=== PATIENT | female | born 1940 | race Caucasian/White ===

== ENCOUNTER 2017-01-17 10:24 | Inpatient (IN) | payer MEDICARE, MEDICAID ==
[~2017-01-17] VITALS: Ht 165.1 cm; Wt 70.9 kg
[2017-01-17] VITALS (9 sets, daily range): BP systolic 153–196; BP diastolic 81–125
[~2017-01-17 10:24] MED LIST: ASPI-892 PO; BENA10TA PO; BENA1TAB14 PO; BENA20TA2 PO; BNZ10T GT; CLN.2T PO; FAMO20TA5 PO; HYDR-3714 PO; METF500T4 PO; NAPR-243 PO; NIAC-4 PO; NIAC750T PO; OMEG1CAP77 PO; OXYC-12 PO; PARO20TA4 PO; PROM25TA14 PO; SIMV40TA4 PO; SMV20T PO; TRM50T PO
[2017-01-17] MEDS ORDERED: ACETAMINOPHEN 500 MG TAB (TYLENOL) PO PRN (10:30)
[2017-01-17] MEDS ORDERED: PROMETHAZINE INJ 25 MG/ML (PHENERGAN) AMP IM PRN (10:30)
[2017-01-17] MEDS ORDERED: fentaNYL INJECTION 100 MCG/2 ML AMP IVP PRN (10:30)
[2017-01-17] MEDS ORDERED: ONDANSETRON 4 MG/2 ML (SDV) Z0FRAN IVP PRN (10:30)
[2017-01-17] MEDS ORDERED: SCOPOLAMINE 1.5 MG (TRANSDERM-SCOP) PATCH TOP SCH (10:30)
[2017-01-17] MEDS ORDERED: PROMETHAZINE 25 MG (PHENERGAN) SUPP PR PRN (10:30)
--- NOTE | 2017-01-17 11:18 | History & Physical-Hospitalist ---
HPI History of Present Illness: HPI/Chief Complaint CC: Hypertensive urgency and refractory nausea and vomiting HPI: This is a 76 yoWF who presents with HTN and severe vomiting causing the inability to keep down food and medications x 3 days. Chart Review: BP 190/100 Pt's family has been monitoring pt. Pt's PCP is [facility] but she originally saw Dr Cunningham when she was admitted last year at this time with the same symptoms Patient still feels very dizzy and a headache and some vision changes and her blood pressure is 167/[address] Ruby and he saw the patient and will initiate workup with gallbladder ultrasound in addition to supportive care Source: patient Date Seen 01/17/17 Attending Physician Lesly Mayes DO PCP Manny Cunningham MD Referring Physician Date of Admission January 17, 2017 at 11:00 Home Medications & Allergies Home Medications Reviewed patient Home Medication Reconciliation Form Allergies Allergies Coded Allergies tramadol (Verified Allergy, Mild, VOMITING/HIVES, 02/19/15) Past Sldbkek-Qcytbe-Coaoah Hx Patient Social History Marrital Status: single Employed/Student: unemployed Recent Foreign Travel: No Contact w/other who traveled: No Immunizations Up To Date Tetanus Booster (TDap): Unknown Date of Pneumonia Vaccine: Mar 14, 2015 Surgeries HX Surgeries: Yes (R FOOT SURG, R HIP SURG, R knee ) Surgeries: Orthopedic Respiratory Hx Respiratory Disorders: No Cardiovascular Hx Cardiovascular Disorders: Yes Cardiac Disorders: High Cholesterol, Hypertension Neurological Hx Neurological Disorders: No Reproductive System Hx Reproductive Disorders: No Sexually Transmitted Disease: No HIV/AIDS: No Genitourinary Hx Genitourinary Disorders: No Gastrointestinal Hx Gastrointestinal Disorders: Yes Gastrointestinal Disorders: Gastroesophageal Reflux Musculoskeletal Hx Musculoskeletal Disorders: No Endocrine Hx Endocrine Disorders: Yes Endocrine Disorders: Diabetes, Non-Insulin dep HEENT HX ENT Disorders: No Cancer Hx Cancer: No Psychosocial Hx Psychiatric Problems: No Integumentary HX Skin/Integumentary Disorder: No Blood Transfusions Hx Blood Disorders: No Adverse Reaction to a Blood Tr: No Family Medical History Family Hx: Cardiovascular disease 19 FATHER Hypercholesterolemia 19 FATHER Hypertension 19 FATHER 19 MOTHER Myocardial infarction 19 FATHER Review of Systems Constitutional: see HPI, dizziness, malaise, weakness EENTM: no symptoms reported Respiratory: no symptoms reported Cardiovascular: no symptoms reported Gastrointestinal: loss of appetite, nausea, vomiting Genitourinary: decreased output Musculoskeletal: back pain Skin: no symptoms reported Psychiatric/Neurological: No Symptoms Reported All Other Systems Reviewed Negative Unless Noted: Yes Physical Exam Physical Exam Vital Signs Vital Sign - Last 12Hours 01/17/17 10:45 Temp 97.0 Pulse 93 Resp 18 B/P (MAP) 196/110 Pulse Ox 98 O2 Delivery Room Air Capillary Refill : General Appearance: No Apparent Distress, WD/WN, Chronically ill Eyes: Bilateral Eye Normal Inspection, Bilateral Eye PERRL HEENT: PERRL/EOMI, Normal ENT Inspection, Pharynx Normal Neck: Full Range of Motion, Normal Inspection, Non Tender, Supple, Carotid Bruit Respiratory: Chest Non Tender, Lungs Clear, Normal Breath Sounds, No Accessory Muscle Use, No Respiratory Distress Cardiovascular: Regular Rate, Rhythm, No Edema, No Gallop, No JVD, No Murmur, Normal Peripheral Pulses Gastrointestinal: Normal Bowel Sounds, No Organomegaly, No Pulsatile Mass, Non Tender, Soft Back: Normal Inspection, No CVA Tenderness, No Vertebral Tenderness Extremity: Normal Capillary Refill, Normal Inspection, Normal Range of Motion, Non Tender, No Calf Tenderness, No Pedal Edema Neurologic/Psychiatric: Alert, Oriented x3, No Motor/Sensory Deficits, Depressed Affect Skin: Normal Color, Warm/Dry Lymphatic: No Adenopathy Assessment/Plan Admission Diagnosis Assessment: Hypertensive urgency Dehydration Severe refractory N/V Hypertension Hyperlipidemia GERD Diabetes mellitus Chronic knee pain History of hypokalemia Weight loss Assessment and Plan Plan: Check labs Appreciate Dr. Ruby help IV fluids and supportive care Cardiology for hypertensive urgency Monitor closely LESLY MAYES DO January 17, 2017 11:18
--- NOTE | 2017-01-17 11:44 | Consultation ---
History of Present Illness History of Present Illness Patient Consulted On(ellyn/time) 01/17/17 11:41 Reason for Visit: 2 days history of nausea and vomiting History of Present Illness nausea and vomiting over 2 day period without any abdominal pain. reports having normal bowel movements. No headaches.uncontrolled hypertension requiring IV therapy, prompting the current admission Allergies and Home Medications Allergies Coded Allergies: tramadol (Verified Allergy, Mild, VOMITING/HIVES, 02/19/15) Home Medications Aspirin 81 Mg Tabec, 81 MG PO HS, (Reported) Benazepril HCl 20 Mg Tablet, 20 MG PO DAILY, #30 Prescribed by: MELISA DOTY on 02/14/16 1029 Famotidine 20 Mg Tablet, 20 MG PO BID, #60 Prescribed by: MELISA DOTY on 02/14/16 1029 Hydrocodone Bit/Acetaminophen 1 Each Tablet, 1 TAB PO TID PRN for PAIN, ( Reported) Niacin 500 Mg Tab.er.24h, 1,000 MG PO HS, (Reported) Finley-3/Dha/Epa/Fish Oil 1 Each Capsule, 1,000 MG PO BID, (Reported) Oxycodone Hcl/Acetaminophen 1 Each Tablet, 1-2 TAB PO Q4-6HR PRN for PAIN, #60 Prescribed by: ANDREW WHITTINGTON on 02/24/15 0750 Paroxetine Hcl 20 Mg Tablet, 20 MG PO DAILY, (Reported) Promethazine HCl 25 Mg Tablet, 25 MG PO Q6H PRN for NAUSEA/VOMITING, #10 Prescribed by: MELISA DOTY on 02/14/16 1029 Simvastatin 40 Mg Tablet, 40 MG PO DAILY, (Reported) Past Mfnzyuw-Dsnfuz-Hdferf Hx Patient Social History Alcohol Use: Denies Use Recent Foreign Travel: No Contact w/Someone Who Travel: No Immunizations Up To Date Tetanus Booster (TDap): Unknown PED Vaccines UTD: No Date of Pneumonia Vaccine: Mar 14, 2015 Surgeries HX Surgeries: Yes (R FOOT SURG, R HIP SURG, R knee ) Surgeries: Orthopedic Respiratory Hx Respiratory Disorders: No Cardiovascular Hx Cardiac Disorders: Yes Cardiac Disorders: High Cholesterol, Hypertension Neurological Hx Neurological Disorders: No Reproductive System Hx Reproductive Disorders: No Sexually Transmitted Disease: No HIV/AIDS: No Genitourinary Hx Genitourinary Disorders: No Gastrointestinal Hx Gastrointestinal Disorders: Yes Gastrointestinal Disorders: Gastroesophageal Reflux Musculoskeletal Hx Musculoskeletal Disorders: No Endocrine Hx Endocrine Disorders: Yes Endocrine Disorders: Diabetes, Non-Insulin dep HEENT HX ENT Disorders: No Cancer Hx Cancer: No Psychosocial Hx Psychiatric Problems: No Integumentary HX Skin/Integumentary Disorder: No Blood Transfusions Hx Blood Disorders: No Adverse Reaction to a Blood Tr: No Family Medical History Family Medial History: Cardiovascular disease 19 FATHER Hypercholesterolemia 19 FATHER Hypertension 19 FATHER 19 MOTHER Myocardial infarction 19 FATHER Review of Systems-General Constitutional: malaise, weakness EENTM: no symptoms reported Respiratory: no symptoms reported Cardiovascular: no symptoms reported Gastrointestinal: nausea, vomiting Genitourinary: no symptoms reported : No Musculoskeletal: no symptoms reported Skin: no symptoms reported Physical Exam-General Problems Physical Exam Vital Signs Vital Sign - Last 12Hours 01/17/17 10:45 Temp 97.0 Pulse 93 Resp 18 B/P (MAP) 196/110 Pulse Ox 98 O2 Delivery Room Air Capillary Refill : HEENT: normal ENT inspection Neck: supple, normal inspection Respiratory: lungs clear Cardiovascular: normal peripheral pulses Gastrointestinal: non tender, soft, no organomegaly Neurologic/Psychiatric: alert, normal mood/affect Skin: warm/dry Comments no abdominal tenderness. Reinoso sign negative. Assessment/Plan Assessment/Plan Admission Diagnosis/Plan lady with unexplained nausea and vomiting of 2 days' duration. Previous soaps. No evidence of bowel obstruction. Differential diagnosis includes gallstones and gastritis. Reasonable to obtain an ultrasound first. If negative, upper endoscopy would be considered. Clinical Quality Measures DVT/VTE Risk/Contraindication: VTE Present on Admission: MYRA Nolan MD January 17, 2017 11:44 am
[2017-01-17] MEDS ORDERED: CATHETER FLUSH 10 ML SYR IV PRN (12:00)
[2017-01-17] MEDS: METOCLOPRAMIDE INJ 10 MG/2 ML (REGLAN) IVP SCH ×3 (12:00→23:59)
[2017-01-17] MEDS: PANTOPRAZOLE 40 MG/10 ML (PROTONIX) VIAL IV SCH ×2 (12:18→20:00)
[2017-01-17] MEDS: NS IV 1000 ML 1,000 ML IV SCH ×3 (12:19→23:59)
[2017-01-17 12:40] LABS: BASOPHILS % (AUTO) 0 % (0-10); EOSINOPHILS % (AUTO) 0 % (0-10); LYMPHOCYTES # (AUTO) 2.1 X 10^3 (1.0-4.0); LYMPHOCYTES % (AUTO) 17 % (12-44); MEAN CORPUSCULAR HEMOGLOBIN 30 PG (25-34); MEAN CORPUSCULAR HGB CONC 35 G/DL (32-36); MEAN CORPUSCULAR VOLUME 84 FL (80-99); MEAN PLATELET VOLUME 9.7 FL (7.4-10.4); MONOCYTES # (AUTO) 0.8 X 10^3 (0.0-1.0); MONOCYTES % (AUTO) 7 % (0-12); NEUTROPHILS # (AUTO) 9.1 X 10^3 (1.8-7.8); NEUTROPHILS % (AUTO) 76 % (42-75); PLATELET COUNT 315 10^3/uL (130-400); RED BLOOD COUNT 4.86 10^6/uL (4.35-5.85)
--- NOTE | 2017-01-17 12:53 | Diagnostic Imaging Report ---
PROCEDURE: US abdomen complete. TECHNIQUE: Multiple real-time grayscale images were obtained over the abdomen in various projections. INDICATION: Nausea and vomiting. FINDINGS: The pancreas visualized portions appear unremarkable. The liver has homogeneous echotexture with no focal mass. Hepatopedal flow in the portal vein is seen. The CBD is 4 mm in caliber. The gallbladder demonstrates no stones or wall thickening. There is however small amount of sludge in the gallbladder fundus. The spleen is 8.2 cm in length, normal. The right kidney is 10.1 cm and the left kidney is 9.5 cm in length. The inferior aspect of the right kidney and most of the left kidney are obscured by bowel gas. No hydronephrosis however is seen. No ascites or fluid collection. Sonographic Reinoso sign is reportedly negative. The visualized portions of the aorta demonstrate no aneurysm. The IVC is obscured by bowel gas. IMPRESSION: Small amount of gallbladder sludge in the fundus seen with no definite stone or evidence of cholecystitis. Dictated by: Dictated on workstation # [id number]
[2017-01-17] MEDS ORDERED: FAMO20TA5 PO (13:38)
[2017-01-17] MEDS ORDERED: MONT10TA24 PO (13:38)
[2017-01-17] MEDS ORDERED: DICY10CA12 PO (13:38)
[2017-01-17] MEDS ORDERED: LORA10TA7 PO (13:38)
[2017-01-17] MEDS ORDERED: SIMV40TA4 PO (13:38)
[2017-01-17] MEDS ORDERED: PARO30TA3 PO (13:38)
[2017-01-17] MEDS ORDERED: BENA20TA2 PO (13:38)
[2017-01-17] MEDS ORDERED: METF500T4 PO (13:38)
[2017-01-17] MEDS ORDERED: NIAC500C3 PO (13:38)
--- NOTE | 2017-01-17 14:36 | Consultation-Cardiology ---
HPI-Cardiology Cardiology Consultation Date of Consultation 01/17/17 Date of Admission Indication: Hypertensive urgency HPI Patient is a 76 y/o female with history of HTN, HLP, DM. Presented to [facility] with complaints of N/V x 3 days with associated headache. Denies any CP or palpitation. Denies dizziness, lightheadedness or syncope. Patient was admitted for hypertensive urgency with BP 193/110 as well as intractable N/V. Currently patient reports she is feeling better. Vomiting has subsided and BP is better controlled with SBP in the 150's. 76-year-old lady with history of hypertension, hyperlipidemia and diabetes mellitus, has been having nausea and vomiting for the last 3 days, mild abdominal discomfort, denied any chest pain, shortness of breath, palpitation, syncope or near syncopal episode, seen at the [facility] and noted to be severely hypertensive, referred for further evaluation and management, upper my evaluation her blood pressure was slightly better, her systolic blood pressure in the 150s Home Medications & Allergies Allergies: Coded Allergies: tramadol (Verified Allergy, Mild, VOMITING/HIVES, 02/19/15) Home Medication List Reviewed: Yes LVL-Gsaxif-Ntyfti Hx Patient Social History Marital Status: single Employed/Student: unemployed Alcohol Use: Denies Use Recreational Drug Use: No Smoking Status: Never a Smoker Recent Foreign Travel: No Recent Infectious Disease Expo: No Recent Hopitalizations: No Physical Abuse Screen: No Sexual Abuse: No Immunizations Up To Date Tetanus Booster (TDap): Unknown Date of Pneumonia Vaccine: Mar 14, 2015 Past Medical History HTN, HLP, DM Family Medical History Significant Family History: No Pertinent Family Hx Family History: Cardiovascular disease 19 FATHER Hypercholesterolemia 19 FATHER Hypertension 19 FATHER 19 MOTHER Myocardial infarction 19 FATHER Constitutional: No chills, No dizziness, No fever, No malaise, No weakness EENTM: No blurred vision, No double vision Respiratory: No cough, No dyspnea on exertion Cardiovascular: No chest pain, No edema, No palpitations Gastrointestinal: No abdominal pain, nausea, vomiting Genitourinary: No dysuria, No frequency Musculoskeletal: No back pain Skin: No lesions, No rash Psychiatric/Neurological: Denies Anxiety, Denies Depressed Reviewed Test Results Reviewed Test Results Lab Laboratory Tests 01/17/17 12:32: White Blood Count 12.0H, Red Blood Count 4.86, Hemoglobin 14.5, Hematocrit 41, Mean Corpuscular Volume 84, Mean Corpuscular Hemoglobin 30, Mean Corpuscular Hemoglobin Concent 35, Red Cell Distribution Width 13.0, Platelet Count 315, Mean Platelet Volume 9.7, Neutrophils (%) (Auto) 76H, Lymphocytes (%) (Auto) 17 , Monocytes (%) (Auto) 7, Eosinophils (%) (Auto) 0, Basophils (%) (Auto) 0, Neutrophils # (Auto) 9.1H, Lymphocytes # (Auto) 2.1, Monocytes # (Auto) 0.8, Eosinophils # (Auto) 0.0, Basophils # (Auto) 0.0 Physical Exam Vital Signs Vital Sign - Last 12Hours 01/17/17 10:45 Temp 97.0 Pulse 93 Resp 18 B/P (MAP) 196/110 Pulse Ox 98 O2 Delivery Room Air Capillary Refill : General Appearance: No Apparent Distress, WD/WN HEENT: PERRL/EOMI, TMs Normal Neck: Non Tender, Supple Respiratory: Chest Non Tender, Lungs Clear Cardiovascular: Regular Rate, Rhythm, No Edema, No Gallop, No JVD, No Murmur Gastrointestinal: Normal Bowel Sounds, No Pulsatile Mass, Soft, Tenderness ( mild ttp RUQ) Rectal: Deferred Back: No CVA Tenderness Extremity: Non Tender, No Calf Tenderness Neurologic/Psychiatric: Alert, Oriented x3, hog counter II-XII Norm as Tested A/P-Cardiology Admission Diagnosis Hypertensive urgency Intractable N/V HLP DM Assessment/Plan Hypertensive urgency- BP is improved with SBP 150. Continue to monitor BP/HR. I will obtain 12 lead ECG Intractable N/V- Abdominal US revealed small amount sludge in GB. Followed by Dr. Ruby and Dr. Mayes HTN- restart home benazepril and continue to monitor BP/HR HLP- maintained on statin. Continue to monitor DM- management by PCP Thank you for allowing us to participate in the management of Ms. Zuñiga. This is Leela Damon PA-C as a scribe for Dr. Gillis. This is Dr. Gillis, I have seen and evaluated the patient with Leela, interviewed the patient and perform physical examination and agree with the current scribe, this is a 76-year-old lady with history of hypertension and hyperlipidemia, history of diabetes mellitus, has been having nausea and vomiting for the past 3 days. Went to the [facility] and noted to have severe hypertension, she was directly admitted for hypertensive urgency. Upon my evaluation she was feeling better after receiving treatment. She denied any chest pain or shortness of breath. No palpitation, on examination lungs were clear to auscultation bilaterally, heart is regular rate and rhythm. I will restart her home medications with Tristan inhibitors, continue to monitor blood pressure, hold her statin for now. I reviewed the note and agree with the current scribe, made few modification and used Italic Font Clinical Quality Measures DVT/VTE Risk/Contraindication: VTE Present on Admission: No Risk Factor Score Per Nursin RFS Level Per Nursing on Admit: 3=High LEELA WORRELL January 17, 2017 14:36 JONATHAN GILLIS MD January 17, 2017 15:48
--- NOTE | 2017-01-17 15:41 | Diagnostic Imaging Report ---
EXAM: Acute abdominal series. INDICATION: Abdominal pain. FINDINGS: PA view of the chest demonstrates clear lungs. The heart size is normal. No effusion or pneumothorax. There is no pneumoperitoneum. No dilated bowel loops are seen. No significant air-fluid levels noted. Hyperdensities within the lower abdomen and pelvis are probably related to fecaliths and phleboliths. There is right hip replacement seen. IMPRESSION: No pneumoperitoneum or evidence of bowel obstruction. Dictated by: Dictated on workstation # [id number]
[2017-01-18] VITALS: BP 158/84
[2017-01-18 04:00] VITALS: BP 161/74
[2017-01-18] MEDS: METOCLOPRAMIDE INJ 10 MG/2 ML (REGLAN) IVP SCH (05:54)
[2017-01-18] MEDS: NS IV 1000 ML 1,000 ML IV SCH (08:07)
[2017-01-18] MEDS: PANTOPRAZOLE 40 MG/10 ML (PROTONIX) VIAL IV SCH (08:07)
[2017-01-18 08:39] LABS: ALANINE AMINOTRANSFERASE 15 U/L (0-55); ALBUMIN 4.5 G/DL (3.2-4.5); AMYLASE 59 U/L (25-125); ANION GAP 12 MMOL/L (5-14); ASPARTATE AMINO TRANSFERASE 15 U/L (5-34); BILIRUBIN,TOTAL 1.4 MG/DL (0.1-1.0); BLOOD UREA NITROGEN 7 MG/DL (7-18); BUN/CREATININE RATIO 10; CARBON DIOXIDE 26 MMOL/L (21-32); CHLORIDE 95 MMOL/L (98-107); CREATININE SERUM 0.72 MG/DL (0.60-1.30); GFR ESTIMATED > 60; GLUCOSE 136 MG/DL (70-105); LIPASE 23 U/L (8-78); POTASSIUM 3.2 MMOL/L (3.6-5.0); SODIUM 133 MMOL/L (135-145); TOTAL PROTEIN 7.3 G/DL (6.4-8.2); TROPONIN I < 0.30 NG/ML (<0.30)
[2017-01-18 08:48] VITALS: BP 169/83
[2017-01-18 08:58] LABS: BASOPHILS % (AUTO) 0 % (0-10); EOSINOPHILS # (AUTO) 0.1 10^3/uL (0.0-0.3); EOSINOPHILS % (AUTO) 1 % (0-10); LYMPHOCYTES # (AUTO) 2.4 X 10^3 (1.0-4.0); LYMPHOCYTES % (AUTO) 27 % (12-44); MEAN CORPUSCULAR HEMOGLOBIN 30 PG (25-34); MEAN CORPUSCULAR HGB CONC 34 G/DL (32-36); MEAN CORPUSCULAR VOLUME 87 FL (80-99); MEAN PLATELET VOLUME 9.7 FL (7.4-10.4); MONOCYTES # (AUTO) 0.6 X 10^3 (0.0-1.0); MONOCYTES % (AUTO) 6 % (0-12); NEUTROPHILS # (AUTO) 5.8 X 10^3 (1.8-7.8); NEUTROPHILS % (AUTO) 66 % (42-75); PLATELET COUNT 263 10^3/uL (130-400); RED BLOOD COUNT 4.22 10^6/uL (4.35-5.85); RED CELL DISTRIBUTION WIDTH 13.1 % (10.0-14.5); WHITE BLOOD COUNT 8.8 10^3/uL (4.3-11.0)
[2017-01-18] MEDS ORDERED: BENAZEPRIL 20 MG (LOTENSIN) TAB PO SCH (09:00)
[2017-01-18 09:16] LABS: ALANINE AMINOTRANSFERASE 11 U/L (0-55); ANION GAP 7 MMOL/L (5-14); ASPARTATE AMINO TRANSFERASE 16 U/L (5-34); BILIRUBIN,TOTAL 1.3 MG/DL (0.1-1.0); BLOOD UREA NITROGEN 9 MG/DL (7-18); BUN/CREATININE RATIO 13; CALCIUM 8.7 MG/DL (8.5-10.1); CARBON DIOXIDE 29 MMOL/L (21-32); CHLORIDE 103 MMOL/L (98-107); CREATININE SERUM 0.68 MG/DL (0.60-1.30); GFR ESTIMATED > 60; GLUCOSE 95 MG/DL (70-105); POTASSIUM 3.2 MMOL/L (3.6-5.0); SODIUM 139 MMOL/L (135-145); TOTAL PROTEIN 6.2 G/DL (6.4-8.2)
--- NOTE | 2017-01-18 11:31 | Discharge Summary-Hospitalist ---
Diagnosis/Chief Complaint Date of Admission January 17, 2017 at 11:00 Date of Discharge January 18, 2017 at 10:58 Discharge Date: January 18, 2017 Admission Diagnosis Assessment: Hypertensive urgency Dehydration Severe refractory N/V Hypertension Hyperlipidemia GERD Diabetes mellitus Chronic knee pain History of hypokalemia Weight loss Discharge Diagnosis Assessment: Hypertensive urgency Dehydration Severe refractory N/V likely due to gastroparesis component along with gallbladder sludge Hypertension Hyperlipidemia GERD Diabetes mellitus Chronic knee pain History of hypokalemia Weight loss Plan: Check labs Appreciate Dr. Ruby help IV fluids and supportive care Cardiology for hypertensive urgency Monitor closely Reason Hospital Visit/Course CC: Hypertensive urgency and refractory nausea and vomiting HPI: This is a 76 yoWF who presents with HTN and severe vomiting causing the inability to keep down food and medications x 3 days. Chart Review: BP 190/100 Pt's family has been monitoring pt. Pt's PCP is [facility] but she originally saw Dr Cunningham when she was admitted last year at this time with the same symptoms Patient still feels very dizzy and a headache and some vision changes and her blood pressure is 167/[address] Ruby and he saw the patient and will initiate workup with gallbladder ultrasound in addition to supportive care Notes from 01/18/17 senior laboratory technician: Dr. Ruby will see pt today upon DC Patient Interview: Possible gallbladder removal was discussed w/pt Physical exam stable no fever, vital signs stable, pleasant, improved Regular rate and rhythm, clear to all sedation bilaterally Positive bowel sounds noted Plan: Follow up [facility] today to discuss gallbladder removal Advance diet Scribed by Millicent Damon under the direct supervision of Dr. Doty. Discharge Summary Discharge Physical Examination Allergies: Coded Allergies: tramadol (Verified Allergy, Mild, VOMITING/HIVES, 02/19/15) Vitals & I&Os Vital Signs Date Time Temp Pulse Resp B/P (MAP) Pulse Ox O2 Delivery O2 Flow Rate FiO2 01/18/17 08:48 98.5 77 18 169/83 94 Room Air Hospital Course Labs (last 24 hrs) Laboratory Tests 01/17/17 12:32: White Blood Count 12.0H, Red Blood Count 4.86, Hemoglobin 14.5, Hematocrit 41, Mean Corpuscular Volume 84, Mean Corpuscular Hemoglobin 30, Mean Corpuscular Hemoglobin Concent 35, Red Cell Distribution Width 13.0, Platelet Count 315, Mean Platelet Volume 9.7, Neutrophils (%) (Auto) 76H, Lymphocytes (%) (Auto) 17 , Monocytes (%) (Auto) 7, Eosinophils (%) (Auto) 0, Basophils (%) (Auto) 0, Neutrophils # (Auto) 9.1H, Lymphocytes # (Auto) 2.1, Monocytes # (Auto) 0.8, Eosinophils # (Auto) 0.0, Basophils # (Auto) 0.0, Sodium Level 133L, Potassium Level 3.2L, Chloride Level 95L, Carbon Dioxide Level 26, Anion Gap 12, Blood Urea Nitrogen 7, Creatinine 0.72, Estimat Glomerular Filtration Rate > 60, BUN/ Creatinine Ratio 10, Glucose Level 136H, Calcium Level 10.0, Total Bilirubin 1.4H, Aspartate Amino Transf (AST/SGOT) 15, Alanine Aminotransferase (ALT/SGPT) 15, Alkaline Phosphatase 62, Troponin I < 0.30, B-Type Natriuretic Peptide 70.7 , Total Protein 7.3, Albumin 4.5, Amylase Level 59, Lipase 23 01/18/17 08:45: White Blood Count 8.8, Red Blood Count 4.22L, Hemoglobin 12.6, Hematocrit 37, Mean Corpuscular Volume 87, Mean Corpuscular Hemoglobin 30, Mean Corpuscular Hemoglobin Concent 34, Red Cell Distribution Width 13.1, Platelet Count 263, Mean Platelet Volume 9.7, Neutrophils (%) (Auto) 66, Lymphocytes (%) (Auto) 27, Monocytes (%) (Auto) 6, Eosinophils (%) (Auto) 1, Basophils (%) (Auto) 0, Neutrophils # (Auto) 5.8, Lymphocytes # (Auto) 2.4, Monocytes # (Auto) 0.6, Eosinophils # (Auto) 0.1, Basophils # (Auto) 0.0, Sodium Level 139, Potassium Level 3.2L, Chloride Level 103, Carbon Dioxide Level 29, Anion Gap 7, Blood Urea Nitrogen 9, Creatinine 0.68, Estimat Glomerular Filtration Rate > 60, BUN/ Creatinine Ratio 13, Glucose Level 95, Calcium Level 8.7, Total Bilirubin 1.3H, Aspartate Amino Transf (AST/SGOT) 16, Alanine Aminotransferase (ALT/SGPT) 11, Alkaline Phosphatase 52, Total Protein 6.2L, Albumin 4.0 Pending Labs Laboratory Tests 01/18/17 08:45: White Blood Count 8.8, Red Blood Count 4.22, Hemoglobin 12.6, Hematocrit 37, Mean Corpuscular Volume 87, Mean Corpuscular Hemoglobin 30, Mean Corpuscular Hemoglobin Concent 34, Red Cell Distribution Width 13.1, Platelet Count 263, Mean Platelet Volume 9.7, Neutrophils (%) (Auto) 66, Lymphocytes (%) (Auto) 27, Monocytes (%) (Auto) 6, Eosinophils (%) (Auto) 1, Basophils (%) (Auto) 0, Neutrophils # (Auto) 5.8, Lymphocytes # (Auto) 2.4, Monocytes # (Auto) 0.6, Eosinophils # (Auto) 0.1, Basophils # (Auto) 0.0, Sodium Level 139, Potassium Level 3.2, Chloride Level 103, Carbon Dioxide Level 29, Anion Gap 7, Blood Urea Nitrogen 9, Creatinine 0.68, Estimat Glomerular Filtration Rate > 60, BUN/ Creatinine Ratio 13, Glucose Level 95, Calcium Level 8.7, Total Bilirubin 1.3, Aspartate Amino Transf (AST/SGOT) 16, Alanine Aminotransferase (ALT/SGPT) 11, Alkaline Phosphatase 52, Total Protein 6.2, Albumin 4.0 Discharge Home Medications: Active Scripts Active Reported Benazepril HCl 20 Mg Tablet 20 Mg PO DAILY Famotidine 20 Mg Tablet 20 Mg PO BID Paroxetine HCl 30 Mg Tablet 30 Mg PO DAILY Montelukast Sodium 10 Mg Tablet 10 Mg PO HS Loratadine 10 Mg Tablet 10 Mg PO DAILY Simvastatin 40 Mg Tablet 40 Mg PO HS Metformin HCl 500 Mg Tablet 500 Mg PO BID Dicyclomine HCl 10 Mg Capsule 10 Mg PO QIDACHS Niacin 500 Mg Capsule.er 1,000 Mg PO HS Aspirin Ec Tab (Aspirin) 81 Mg Tabec 81 Mg PO HS Fish Oil 1,000 Mg Softgel (Reading-3/Dha/Epa/Fish Oil) 1 Each Capsule 1,000 Mg PO BID Instructions to patient/family Please see electonic discharge instructions given to patient. Clinical Quality Measures DVT/VTE Risk/Contraindication: VTE Present on Admission: No Risk Factor Score Per Nursin RFS Level Per Nursing on Admit: 3=High MELISA DOTY DO January 18, 2017 11:31
[2017-01-20] MEDS ORDERED: SCOPOLAMINE PATCH REMOVAL TP SCH (10:29)
== END 2017-01-18 10:58 | disposition home or self-care (01) | DRG 305 ==
LOC: ICU 11:00 → 4TH 16:10
PROVIDERS: ADMIT Internal Medicine; ATTEND Internal Medicine
DX: I16.0 Hypertensive urgency (principal); K31.84 Gastroparesis; E86.0 Dehydration; E11.9 Type 2 diabetes mellitus without complications; I10 Essential (primary) hypertension; E78.5 Hyperlipidemia, unspecified; K21.9 Gastro-esophageal reflux disease without esophagitis; R63.4 Abnormal weight loss; Z66 Do not resuscitate; M79.669 Pain in unspecified lower leg
CPT/HCPCS: 36415; 74022; 76700; 80053; 82150; 83690; 83880; 84484; 85025; 87081; 94760

== ENCOUNTER 2017-01-25 12:44 | Outpatient (CLI) | payer MEDICARE, MEDICAID ==
[~2017-01-25] VITALS: Ht 165.1 cm; Wt 72.1 kg
[~2017-01-25 12:44] MED LIST changes: +DICY10CA12 PO; +LORA10TA7 PO; +MONT10TA24 PO; +NIAC500C3 PO; +PARO30TA3 PO
[2017-01-25 12:50] VITALS: BP 172/98
[2017-01-31] MEDS ORDERED: HYDR-3812 PO (09:03)
== END 2017-01-25 13:00 | disposition home or self-care (01) ==
LOC: PREOP 12:44
PROVIDERS: ATTEND Surgery
DX: Z01.818 Encounter for other preprocedural examination (principal); Z11.2 Encounter for screening for other bacterial diseases; K82.9 Disease of gallbladder, unspecified
CPT/HCPCS: 87081

== ENCOUNTER 2017-01-31 06:22 | Day surgery (SDC) | payer MEDICARE, MEDICAID ==
[~2017-01-31] VITALS: Ht 165.1 cm; Wt 72.1 kg
[2017-01-31] MEDS ORDERED: fentaNYL INJECTION 100 MCG/2 ML AMP ONE (06:44)
[2017-01-31] MEDS ORDERED: LIDOCAINE PF 2% 10 ML (XYLOCAINE) AMP ONE (06:44)
[2017-01-31] MEDS ORDERED: proPOfol 200 MG/20 ML (DIPRIVAN) VIAL IV ONE (06:44)
[2017-01-31] MEDS ORDERED: SEVOFLURANE (ULTANE) 15 ML INHAL SOLN ONE (06:44)
[2017-01-31] MEDS ORDERED: ONDANSETRON 4 MG/2 ML (SDV) Z0FRAN ONE (06:44)
[2017-01-31] MEDS ORDERED: ROCURONIUM 50 MG/5 ML (ZEMURON) VIAL IV ONE (06:44)
[2017-01-31] MEDS ORDERED: MIDAZOLAM 2 MG/2 ML (VERSED) VIAL ONE (06:45)
[2017-01-31] MEDS ORDERED: FAMOTIDINE 20MG/2ML IV (PEPCID) IV ONE (06:45)
[2017-01-31] MEDS ORDERED: ceFAZolin 1 GM/NS 50 ML IVPB IV ONE ×2 (07:00)
[2017-01-31] MEDS ORDERED: metroNIDAZOLE 500 MG/100 ML IVPB (PRE-MIX) IV ONE (07:00)
[2017-01-31] MEDS: LACTATED RINGERS 1,000 ML IV PRN ×2 (07:05→08:24)
[2017-01-31] MEDS ORDERED: BUP/EPI 0.25% 1:200,000 (MARCAINE) 30 ML VIAL ONE (07:14)
[2017-01-31 07:16] VITALS: BP 168/82
--- NOTE | 2017-01-31 07:55 | Progress Note-Pre Operative ---
Pre-Operative Progress Note H&P Reviewed The H&P was reviewed, patient examined and no changes noted. Date H&P Reviewed: January 31, 2017 Time H&P Reviewed: 07:39 Pre-Operative Diagnosis: sludge in gallbladder MYRA BEAN MD January 31, 2017 7:55 am
[2017-01-31] MEDS ORDERED: LACTATED RINGERS 1,000 ML IV ONE (08:21)
[2017-01-31] MEDS ORDERED: GLYCOPYRROLATE 0.2 MG/ML (ROBINUL) 2 ML VIAL ONE (08:42)
[2017-01-31] MEDS ORDERED: NEOSTIGMINE (BLOXIVERZ ) 1 MG/1ML 10 ML VIAL ONE (08:42)
--- NOTE | 2017-01-31 09:01 | Progress Note-Post Operative ---
Post-Operative Progess Note Surgeon (s)/Bag Machine Adjuster (s) Surgeon MYRA BEAN MD Bag Machine Adjuster: NOT APPLICABLE Pre-Operative Diagnosis sludge in gallbladder Post-Operative Diagnosis SAME Procedure & Operative Findings Date of Procedure 01/31/17 Procedure Preformed/Findings ROBOTIC ASSISTED CHOLECYSTECTOMY WITH CHOLANGIOGRAM( normal) Anesthesia Type Gen. Estimated Blood Loss Estimated blood loss (mL): minimal Specimens/Packing Specimens Removed gallbladder Packing: none MYRA BEAN MD January 31, 2017 9:01 am
[2017-01-31] MEDS ORDERED: HYDR-3812 PO (09:03)
--- NOTE | 2017-01-31 09:04 | Discharge Inst-Simple/Standard ---
Discharge Inst-Standard Discharge Medications New, Converted or Re-Newed RX: RX on Chart Patient Instructions/Follow Up Plan of Care/Instructions/FU: dressings off in 48 hours. Incentive spirometry. Follow-up in 3 weeks. Activity as Tolerated: Yes Discharge Diet: No Restrictions MYRA BEAN MD January 31, 2017 9:04 am
[2017-01-31] MEDS ORDERED: ONDANSETRON 4 MG/2 ML (SDV) Z0FRAN IVP PRN (09:15)
[2017-01-31] MEDS ORDERED: morphine INJ 4 MG/ML 1 ML (VIAL/SYRINGE) ONE ×2 (09:17→09:39)
[2017-01-31] MEDS: morphine INJ 10 MG/ML 1ML (SYR OR VIAL) IVP PRN ×2 (09:25→09:41)
[2017-01-31 10:05] VITALS: BP 108/56
[2017-01-31 10:35] VITALS: BP 127/62
[2017-01-31 11:05] VITALS: BP 127/71
--- NOTE | 2017-01-31 13:02 | Diagnostic Imaging Report ---
EXAMINATION: Intraoperative cholangiogram. INDICATION: Abdominal pain. Cholecystectomy performed by Dr. Ruby. FLUOROSCOPY TIME: 17 seconds of fluoroscopic time and 9 cc of Omnipaque 300 was utilized. FINDINGS: There is opacification of the CBD which has a normal caliber. No filling defects are seen to suggest a stone or mass. There is normal passage of contrast from the CBD into the duodenum. Contrast outside the distal aspect of the duct is seen, probably leaking the injection site. IMPRESSION: 1. No ductal dilatation or evidence of stones. No evidence of obstruction. 2. Extraluminal contrast around the distal aspect of the CBD is probably reflecting leakage from the injection site rather than true pathology. Correlate with the intraoperative findings. Dictated by: Dictated on workstation # [id number]
--- NOTE | 2017-01-31 23:04 | OPERATIVE REPORT ---
DATE OF SERVICE: 01/31/2017 PREOPERATIVE DIAGNOSES: 1. Sludge in the gallbladder. 2. Elevated liver enzymes. POSTOPERATIVE DIAGNOSES: 1. Sludge in the gallbladder. 2. Elevated liver enzymes. OPERATIONS: 1. Robotic-assisted cholecystectomy. 2. Intraoperative cholangiogram. SURGEON: Myra Bean MD ANESTHESIA: General anesthesia. BLOOD LOSS: Minimal. FLUIDS: 1400 mL of crystalloid. TYPE OF WOUND: Type 2 (clean-contaminant wound). INDICATION FOR PROCEDURE: This lady presented with sludge in the gallbladder and elevated bilirubin. She was offered robotic-assisted cholecystectomy with cholangiogram to rule out choledocholithiasis. Informed consent was obtained after reviewing the operative details and complications of wound infection and bile leak. DESCRIPTION OF PROCEDURE: TopofForm She was placed supine on the operating table, and general endotracheal anesthesia induced using an endotracheal tube. A gram of Ancef and 500 mg of Flagyl were administered intravenously as prophylaxis against wound infection. Sequential compression devices were placed around her legs to minimize the risk of venous thrombus. Abdomen was prepared and draped in the usual sterile manner. A subumbilical incision was made, and pneumoperitoneum established using a Veress needle. Intraabdominal pressure was maintained at 15 mmHg using carbon dioxide insufflation. A 12 mm trocar was placed, and anatomy visualized using the 3-dimensional, high-definition laparoscope associated with the da Edie system. Under direct view, I placed an 8 mm cannula over each side of the abdomen, followed by a 5 mm trocar over the left subcostal margin. The patient was then turned into reverse Trendelenburg position with the right side tilted up. The robotic system was then docked in place. The fundus of the gallbladder was then retracted cephalad, and the infundibulum grasped with Cadiere forceps. Peritoneum overlying Calot's triangle was incised using hook cautery, delineating the cystic duct and artery. Cholangiogram was obtained using a Taut catheter. It revealed a slightly dilated common bile duct with no filling defects within it. The contrast flowed freely into the duodenum. The catheter was then removed, and the cystic duct controlled using locking clips. The cystic artery was also controlled using the same type of clips. Cholecystectomy was then completed using hook cautery. The gallbladder was then placed in an Endo-Catch bag and removed via the subumbilical incision. The fascia over this incision was then closed using #1 Vicryl with the Endo Close device under direct view. Skin incisions were closed using 4-0 Vicryl in a subcuticular fashion. Marcaine 0.25% with epinephrine was infiltrated along the incisions, both preemptively and at the conclusion of the operation. She tolerated the procedure well, was extubated in the operating room and taken to the recovery room in a stable condition. [place], sponges and instruments were correct at the end of the operation.BottomofForm Job ID: [id number] DocumentID: [id number] Dictated Date: 01/31/2017 08:58:41 Assembly Line Robot Operator Date: 01/31/2017 23:04:09 Dictated By: MYRA BEAN MD MTDD
== END 2017-01-31 11:35 | disposition home or self-care (01) ==
LOC: SDC 06:22
PROVIDERS: ATTEND Surgery
DX: K82.9 Disease of gallbladder, unspecified (principal); R74.8 Abnormal levels of other serum enzymes; I10 Essential (primary) hypertension; E78.5 Hyperlipidemia, unspecified; K21.9 Gastro-esophageal reflux disease without esophagitis; Z79.899 Other long term (current) drug therapy
CPT/HCPCS: 82962; 94664

== ENCOUNTER 2017-03-08 06:13 | Outpatient (CLI) | payer MEDICARE, MEDICAID ==
[~2017-03-08 06:13] MED LIST changes: +HYDR-3812 PO
== END 2017-03-08 12:30 ==
DX: Z01.818 Encounter for other preprocedural examination (principal); Z12.11 Encounter for screening for malignant neoplasm of colon

== ENCOUNTER 2017-03-12 07:12 | Day surgery (SDC) | payer MEDICARE, MEDICAID ==
[~2017-03-12] VITALS: Ht 165.1 cm; Wt 72.1 kg
[2017-03-12] MEDS ORDERED: NS IV 500 ML 500 ML IV SCH (07:30)
[2017-03-12] MEDS ORDERED: FLUMAZENIL (ROMAZICON) 0.1 MG/ML 5 ML VIAL INJ PRN (07:30)
[2017-03-12] MEDS ORDERED: NS IV 500 ML 500 ML ONE (07:30)
[2017-03-12] MEDS ORDERED: NALOXONE 0.4 MG/ML 1 ML (NARCAN) VIAL IVP PRN (07:30)
[2017-03-12 07:34] VITALS: BP 163/83
[2017-03-12] MEDS ORDERED: fentaNYL INJECTION 100 MCG/2 ML AMP ONE ×2 (07:58→08:02)
[2017-03-12] MEDS ORDERED: MIDAZOLAM 2 MG/2 ML (VERSED) VIAL ONE ×4 (07:58)
[2017-03-12] MEDS: fentaNYL INJECTION 100 MCG/2 ML AMP IVP PRN ×4 (08:02→08:17)
[2017-03-12] MEDS: MIDAZOLAM 2 MG/2 ML (VERSED) VIAL IVP PRN ×2 (08:08→08:11)
--- NOTE | 2017-03-12 08:36 | Endoscopy Procedure Report ---
Endoscopy Report Date: Mar 12, 2017 Preoperative Diagnosis: screening Study Performed: Colonoscopy Procedure Instrument: Colonoscope Endo Procedure/Findings Findings 1.: Diverticulosis Recommendations: Recommendations: 1.: Colonscopy in 5 years MYRA BEAN MD Mar 12, 2017 8:36 am
--- NOTE | 2017-03-12 08:36 | Conscious Sedation/ASA ---
Conscious Sedation Pre-Proced Time Reviewed: 07:52 ASA Class: 2 Airway Mallampati Classification: ([place] appropriate class) I. II. III, IV Lungs Heart ASA score ASA 1: a normal healthy patient ASA 2: a patient with a mild systemic disease (mid diabetes, controlled hypertension, obesity ASA 3: a patient with a severe systemic disease that limits activity (angina , COPD, prior Myocardial infarction) ASA 4: a patient with an incapacitating disease that is a constant threat to life (CHF, renal failure) ASA 5: a moribund patient not expected to survive 24 hrs. (ruptured aneurysm) ASA 6: a declared brain patient whose organs are being harvested. For emergent operations, add the letter E after the classification Grade 1 Sedation Plan: Discussed options with patient/fam Note The patient is an appropriate candidate to undergo the planned procedure, sedation, and anesthesia. The patient immediately re-assessed prior to indication. MYRA BEAN MD Mar 12, 2017 8:36 am
--- NOTE | 2017-03-12 08:38 | Discharge Inst-Simple/Standard ---
Discharge Inst-Standard Discharge Medications New, Converted or Re-Newed RX: Other Patient Instructions/Follow Up Plan of Care/Instructions/FU: rrepeat colonoscopy in 5 years Activity as Tolerated: Yes Discharge Diet: ADA Diet MYRA BEAN MD Mar 12, 2017 8:38 am
[2017-03-12 08:50] VITALS: BP 114/57
[2017-03-12 09:30] VITALS: BP 102/63
[2017-03-12 09:44] VITALS: BP 102/63
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
--- NOTE | 2017-03-12 21:43 | OPERATIVE REPORT ---
DATE OF SERVICE: 03/12/2017 PROCEDURE: Screening colonoscopy. SURGEON: Myra Bean MD. INDICATION FOR PROCEDURE: This lady came in for screening colonoscopy. She reported a family history of polyps as well. Informed consent was obtained after reviewing the procedure in detail. DESCRIPTION OF PROCEDURE: She was placed in left lateral decubitus position and her vital signs were monitored. Conscious sedation was achieved using Versed and fentanyl. Digital rectal examination was unremarkable. The colonoscope was then introduced into the rectum and advanced all the way up to the cecum. The scope was then withdrawn slowly and the mucosa examined in a systematic fashion. FINDINGS: 1. Very few sigmoid diverticula. 2. No polyps were found. She tolerated the procedure well and was taken back to the nursing area in a stable condition. IMPRESSION: Screening colonoscopy. Family history of polyps. No polyps were found today. Recommend repeat examination in 5 years. Job ID: [id number] DocumentID: [id number] Dictated Date: 03/12/2017 08:36:00 Drop Wire Hanger Date: 03/12/2017 12:37:01 Dictated By: MYRA BEAN MD MTDD
== END 2017-03-12 09:35 | disposition home or self-care (01) ==
LOC: ENDO 07:12
PROVIDERS: ATTEND Surgery
DX: Z12.11 Encounter for screening for malignant neoplasm of colon (principal); Z83.71 Family history of colonic polyps; K57.30 Diverticulosis of large intestine without perforation or abscess without bleeding

== ENCOUNTER 2017-11-23 14:07 | Outpatient (RCR) | payer MEDICARE, MEDICAID ==
[~2017-11-23 14:07] MED LIST changes: +ACHD5005 PO; -HYDR-3812 PO
== END 2017-12-07 13:49 | disposition home or self-care (01) ==
PROVIDERS: ATTEND Nurse Practitioner Community Health
DX: M25.561 Pain in right knee (principal)